=== PATIENT | female | born 1960 | race Caucasian/White ===

== ENCOUNTER 2017-02-07 09:51 | Inpatient (IN) ==
[2017-02-07] MEDS ORDERED: ACETAMINOPHEN 325 MG TABLET PO PRN (10:38)
[2017-02-07] MEDS: LEVOFLOXACIN INJ 750 MG in PREMIX 1 EACH IV SCH (11:48)
[2017-02-07] MEDS: SODIUM CHLORIDE 0.9% 1,000 ML IV SCH ×2 (11:48→19:00)
[2017-02-07] MEDS: HYDROmorphone 2 MG/1 ML VIAL IV PRN ×2 (12:14→18:23)
[2017-02-07] MEDS: ONDANSETRON 4 MG/2 ML VIAL IV PRN (12:18)
--- NOTE | 2017-02-07 12:45 | EKG Report ---
Stationary ECG Study [facility] Test Date: 02/07/2017 12:44:22 PM Pat Name: MIS RAMIREZ Department: Room: 223 Gender: F Echocardiograph Technician: DEJAH : 1960 Requested by: Geoff Alexis Order Number: [id number] Reading MD: NIRAJ PETERSON Intervals [place] Rate: 67 P: 37 NV: 153 QRS: -16 QRSD: 93 T: -32 QT: 407 QTc: 423 Interpretive Statements SINUS RHYTHM VOLTAGE CRITERIA FOR LVH Electronically Signed On 02-07-17 16:25:38 CDT by NIRAJ PETERSON [email or web address]
--- NOTE | 2017-02-07 12:47 | General Surgery Consult Note ---
Assessment and Plan (1) Abdominal pain Status: Acute Assessment and plan: Patient is experiencing abdominal pain which is now localized to the right lower quadrant. This is progressed over several days but appears rather severe at this time. Currently all labs and imaging are pending. Patient is currently in pain but feeling somewhat improved by her report. We will follow- up on results of current studies with additional recommendations. Dr. Singh to follow. Current Visit: Yes History of Present Illness Chief complaint: Abdominal Pian History of present illness: Ms. Palmer is a 56 year old female with past medical history of diverticulitis , hypertension, depression and anxiety who reports abdominal pain for approximately 1 week which is gotten significantly worse for the past 4 days. She states that she has had severe diffuse abdominal pain which is very sensitive to even light touch which has now localized more to the right lower quadrant. She has experienced nausea with dry heaving and has had virtually no oral intake over the past 4 days with taking in small amounts of liquid only. She reports subjective fever but did not take her temperature at home. She reports typically having chronic constipation although she has been experiencing diarrhea multiple times per day also for the past 4-5 days. She has sought no medical treatment previously. She was directly admitted by Dr. Garrido. CT scan of the abdomen and pelvis is currently pending as well as labs. Home Medications Medication Instructions Recorded Confirmed Type Baclofen 10 mg PO TID PRN 03/09/15 02/07/17 History DULoxetine [Cymbalta] 30 mg PO BID 03/09/15 02/07/17 History Folic Acid Tab 1 mg PO BID 03/09/15 02/07/17 History Gabapentin Cap/Tab [Neurontin 600 mg PO TID 03/09/15 02/07/17 History Cap/Tab] Metoprolol Succinate Xl [Toprol Xl] 25 mg PO DAILY 03/09/15 02/07/17 History Oxybutynin Xl [Ditropan Xl] 15 mg PO BID 03/09/15 02/07/17 History traMADol TAB [Ultram] 1 tablet PO BID 03/09/15 02/07/17 History Ondansetron HCl 4 mg PO Q6H PRN 03/10/15 02/07/17 History Aspirin [Ecotrin] 325 mg PO DAILY 02/07/17 02/07/17 History Calcium Carbonate/Vitamin D3 2 tablet PO BID 02/07/17 02/07/17 History [Caltrate 600 Plus D3 Tablet] Cholecalciferol (Vitamin D3) 2,000 units PO BID 02/07/17 02/07/17 History [Vitamin D3] Cyanocobalamin (Vitamin B-12) 5,000 mcg PO BID 02/07/17 02/07/17 History [Vitamin B-12] Donepezil [Aricept] 10 mg PO BEDTIME 02/07/17 02/07/17 History LORazepam TAB [Ativan Tab] 0.5 mg PO QID 02/07/17 02/07/17 History Thiamine HCl 500 mg PO BID 02/07/17 02/07/17 History Trazodone HCl 100 mg PO BEDTIME 02/07/17 02/07/17 History Allergies Allergy/AdvReac Type Severity Reaction Status Date / Time cephalexin [From Keflex] AdvReac Severe Unknown/Unable Verified 03/10/15 10:29 to obtain vilazodone [From Viibryd] AdvReac Severe Unknown/Unable Verified 03/10/15 10:29 to obtain Medical,Surgical,& Family Hx - Medical History Cardio: History of: Hypertension, Cardiovascular Problems (bradycardia) Psychological: History of: Anxiety Disorders, Depression Neurology: History of: TIA No history of: Seizures HEENT: History of: HEENT Problems (hard time swallowing) Endocrine: No history of: Thyroid Disorder Renal: History of: Renal Problems (neurogenic bladder, patient self caths at home) Genitourinary: History of: Recurring Urinary Tract Infections Gastrointestinal: History of: Diverticulitis/ Diverticulosis, GERD Musculoskeletal: History of: Back/Neck Problems (surgery on neck) Hematology: No history of: Anemia - Surgical History Additional Surgical History: ; hysterectomy; cervical; knee - Family History Family History: Reports;: Additional Family History Additional Family History: Sister with factor V Leiden deficiency - Social History Smoking Status: Never smoker Frequency of Alcohol Use: None Type of Drug Use: None - Constitutional Constitutional: Present: as per HPI - Cardiovascular Cardiovascular: Absent: chest pain at rest, chest pain with activity, dyspnea, dyspnea on exertion - Respiratory Respiratory: Absent: cough, wheezing - Gastrointestinal Gastrointestinal: Present: as per HPI - Genitourinary Genitourinary: Absent: dysuria, flank pain - Musculoskeletal Musculoskeletal: Absent: arthralgias, joint swelling Hematologic/Lymphatic: Absent: easy bleeding, easy bruising Exam - Constitutional Vitals: Period Temp Pulse Resp BP Sys/Pruitt Pulse Ox Last 24 Hr 98.5 F 76 20 121/72 92 General appearance: mild distress - Eye Eye exam: Absent: scleral icterus - Neck Neck exam: Present: trachea midline - Respiratory Respiratory exam: Present: clear to auscultation bilaterally - Cardiovascular Cardiovascular exam: Present: RRR - GI/Abdominal GI/Abdominal exam: Present: tenderness (Patient with tenderness localized right lower quadrant; she is guarding), soft. Absent: distended - Extremities Exam Extremities exam: Absent: calf tenderness, edema - Neurological Exam Neurological exam: Present: alert, oriented X3 Speech: Present: normal - Skin Skin exam: Present: normal color, warm Results - Labs Labs: All labs and imaging pending
[2017-02-07 13:33] LABS: Basophils % 0.3 % (0.0-0.8); Eosinophils # 0.1 10*3/uL (0.0-0.87); Eosinophils % 1.2 % (0.00-10.9); Hematocrit 37.9 VOL% (35.7-47.0); Hemoglobin 12.8 GM/DL (12.0-16.0); Immature Granulocytes % 0.7 %; Immature Granulocytes Absolute 0.08 #; Lymphocytes # 2.2 10*3/uL (1.4-4.0); Lymphocytes % 19.5 % (21.3-54.2); Mean Corpuscular HGB Conc 33.8 GM/DL (32-36); Mean Corpuscular Hemoglobin 31 PG (27-34); Mean Corpuscular Volume 92.4 FL (87-102); Mean Platelet Volume 10.6 FL (9.6-12.0); Monocytes # 0.9 10*3/uL (0.11-0.8); Monocytes % 7.9 % (1.7-12.7); Neutrophils # 8.1 10*3/uL (1.4-7.4); Neutrophils % 70.4 % (38.7-73.9); Platelet Count 208 T/CUMM (130-400); Red Cell Distribution Width 13.3 % (9.3-17.3); White Blood Count 11.4 T/CUMM (4-12)
[2017-02-07 13:54] LABS: Bilirubin,Total 0.4 MG/DL (0.2-1.0); Calcium 8.6 MG/DL (8.5-10.1); Osmolality,Calculated 279.4 MOS/KG (273-304); Potassium 4.2 MMOL/L (3.5-5.1); Total Protein 6.2 G/DL (6.4-8.3)
--- NOTE | 2017-02-07 14:22 | CT Report ---
Exam: CT abdomen pelvis w con Date: 02/07/2017 10:41 AM Comparison: 04/14/2012 Indication: Abdominal pain Total DLP: 1761.0 mGy*cm Technical: Oral contrast was administered. Images were obtained from the lung bases to the iliac crest continuation through the pelvis with 100 cc of Omnipaque 350 with axial sagittal coronal imaging available for review. Dose reduction was performed with decreasing kv and mA and automated exposure Findings: Lung bases: No obvious infiltrates or effusions present. Bibasilar atelectatic changes are present. Liver and Spleen: Unremarkable Gallbladder and Pancreas: Gallbladder is distended without obvious stones or sludge or debris. The pancreas is otherwise unremarkable. Adrenals: Unremarkable Kidneys: Both kidneys are equally perfused and demonstrate no evidence for obstructive uropathy. Stomach: Incomplete distended with air fluid and debris Retroperitoneum: No enlarged lymph nodes. Aorta and IVC: Vascular plaque in the aorta and iliac vessels minimal calcification along the renal artery areas Bowel and Mesentery: Some dilated loops of bowel are present. There is wall thickening within the cecal region and ascending colon. The appendix is not readily apparent the terminal ileum is unremarkable. Pelvis: Bladder: Incompletely distended with fluid and contrast Fluid: Small free fluid identified. This is located adjacent to the cecum Lymph nodes: No enlarged lymph nodes. Pelvic organs: Previous hysterectomy. Phleboliths in the true pelvis. Osseous structures: Degenerative changes of thoracic spine with degenerative spondylosis and discogenic disease Impression: 1. Thickening of the bowel wall in the cecal region and ascending colon that suggests a component of colitis. No defined abscess collection clearly seen 2. Small amount of free fluid in the deep pelvis cul-de-sac. 3. Slightly distended gallbladder without obvious stones 4. Minimal vascular calcification of the aortoiliac vessels 5. Injection granulomas in the gluteal region 6. Degenerative spondylosis change thoracic lumbar spine. PROCEDURE INTERPRETED AT [facility] DEPARTMENT OF RADIOLOGY Final Report Signed by: Dr. Rodger Julian
--- NOTE | 2017-02-07 15:23 | XRay Report ---
2 view chest February 07, 2017 at 1510 hours Indication: Shortness of breath Comparison: December 05, 2012 Findings: Cardiomediastinal contours are normal. Lungs are clear bilaterally. No acute osseous abnormalities. Visualized upper abdomen demonstrates no acute pathology. Impression: No acute cardiopulmonary findings PROCEDURE INTERPRETED AT [facility] DEPARTMENT OF RADIOLOGY Final Report Signed by: Telly Rooney
[2017-02-07] MEDS ORDERED: ONDANSETRON 4 MG TABLET PO PRN (17:16)
[2017-02-07 18:18] LABS: Apearance,Urine CLEAR (Clear); Bacteria,Urine Many /HPF (Few); Bilirubin,Urine Negative (Negative); Blood, Urine Negative (Negative); Glucose,Urine (UA) Negative (Negative); Ketones,Urine 5 mg/dL (Negative); Mucus,Urine Occasional /LPF (Occasional); Nitrite,Urine Negative (Negative); Protein,Urine Negative; Squamous Epithelial Cell,Urine Occasional /HPF (0-10); Urine Color Yellow (Yellow); Urine Specific Gravity 1.004 (1.001-1.035); Urine Urobilinogen < 2.0 EU/DL (0.2-1.0); WBC,Urine 1 /HPF (0-6)
[2017-02-07] MEDS: LORazepam 0.5 MG TABLET PO SCH ×2 (18:23→20:54)
[2017-02-07] MEDS: metroNIDAZOLE INJ 500 MG in PREMIX 1 EACH IV SCH (20:42)
[2017-02-07] MEDS: CYANOCOBALAMIN 500 MCG TABLET PO SCH (20:46)
[2017-02-07] MEDS: CHOLECALCIFEROL 1,000 UNIT TABLET PO SCH (20:52)
[2017-02-07] MEDS: THIAMINE 100 MG TABLET PO SCH (20:53)
[2017-02-07] MEDS: DONEPEZIL 10 MG TABLET PO SCH (20:53)
[2017-02-07] MEDS: CALCIUM (CARBONATE)/VITAMIN D 600 MG-400 UNIT TABLET PO SCH (20:53)
[2017-02-07] MEDS: DULoxetine 30 MG CAPSULE PO SCH (20:54)
[2017-02-07] MEDS: traZODone 50 MG TABLET PO SCH (20:54)
[2017-02-07] MEDS: FOLIC ACID 1 MG TABLET PO SCH (20:54)
[2017-02-07] MEDS: GABAPENTIN 300 MG CAPSULE PO SCH (20:55)
[2017-02-07] MEDS: OXYBUTYNIN XL 15 MG TABLET PO SCH (20:55)
[2017-02-07] MEDS: DOCUSATE SODIUM 100 MG CAPSULE PO SCH (20:56)
[2017-02-07] MEDS: traMADol 50 MG TABLET PO SCH (20:56)
[2017-02-08] MEDS: HYDROmorphone 2 MG/1 ML VIAL IV PRN ×2 (00:09→06:09)
[2017-02-08] MEDS: SODIUM CHLORIDE 0.9% 1,000 ML IV SCH ×4 (01:54→20:58)
[2017-02-08] MEDS: metroNIDAZOLE INJ 500 MG in PREMIX 1 EACH IV SCH ×3 (04:55→20:57)
[2017-02-08] MEDS: ONDANSETRON 4 MG/2 ML VIAL IV PRN ×3 (05:18→20:31)
--- NOTE | 2017-02-08 07:52 | Family Practice History&Phys ---
Assessment and Plan (1) Acute colitis Status: Acute Current Visit: Yes History of Present Illness Chief complaint: Abdominal pain History of present illness: Ms. Palmer is a 56 year old female Patient is a 56-year-old white female presented the office on day of admission with severe abdominal pain of 4 days duration. Patient was noted to have nausea and vomiting associated with this as well as diarrhea. She denies any blood or mucus in her stool. She states she has never had anything quite like this before. She has had previous colonoscopy that showed diverticular disease. Patient pointed to her right abdomen is a source of her discomfort. Patient was admitted my services in the emergency CT of the abdomen was obtained which revealed her to have evidence of colitis in the cecum and ascending colon. She was seen in consultation by Dr. carter and GI has also been consulted. Patient states her pain persists. She is presently on IV antibiotic therapy. Home Medications Medication Instructions Recorded Confirmed Type Baclofen 10 mg PO TID PRN 03/09/15 02/07/17 History DULoxetine [Cymbalta] 30 mg PO BID 03/09/15 02/07/17 History Folic Acid Tab 1 mg PO BID 03/09/15 02/07/17 History Gabapentin Cap/Tab [Neurontin 600 mg PO TID 03/09/15 02/07/17 History Cap/Tab] Metoprolol Succinate Xl [Toprol Xl] 25 mg PO DAILY 03/09/15 02/07/17 History Oxybutynin Xl [Ditropan Xl] 15 mg PO BID 03/09/15 02/07/17 History traMADol TAB [Ultram] 1 tablet PO BID 03/09/15 02/07/17 History Ondansetron HCl 4 mg PO Q6H PRN 03/10/15 02/07/17 History Aspirin [Ecotrin] 325 mg PO DAILY 02/07/17 02/07/17 History Calcium Carbonate/Vitamin D3 2 tablet PO BID 02/07/17 02/07/17 History [Caltrate 600 Plus D3 Tablet] Cholecalciferol (Vitamin D3) 2,000 units PO BID 02/07/17 02/07/17 History [Vitamin D3] Cyanocobalamin (Vitamin B-12) 5,000 mcg PO BID 02/07/17 02/07/17 History [Vitamin B-12] Donepezil [Aricept] 10 mg PO BEDTIME 02/07/17 02/07/17 History LORazepam TAB [Ativan Tab] 0.5 mg PO QID 02/07/17 02/07/17 History Thiamine HCl 500 mg PO BID 02/07/17 02/07/17 History Trazodone HCl 100 mg PO BEDTIME 02/07/17 02/07/17 History Allergies Allergy/AdvReac Type Severity Reaction Status Date / Time cephalexin [From Keflex] AdvReac Severe Unknown/Unable Verified 03/10/15 10:29 to obtain vilazodone [From Viibryd] AdvReac Severe Unknown/Unable Verified 03/10/15 10:29 to obtain - Constitutional Constitutional: Present: fatigue, weakness. Absent: chills, fever(s) - EENT Eyes: Absent: blurry vision, loss of vision Ears: Absent: decreased hearing, ear pain Nose, mouth and throat: Absent: hoarseness, nasal congestion, sinus pressure, sore throat - Cardiovascular Cardiovascular: Absent: chest pain at rest, dyspnea, orthopnea, palpitations, PND - Respiratory Respiratory: Absent: cough, dyspnea, wheezing - Gastrointestinal Gastrointestinal: Present: abdominal pain, bloating, cramping, diarrhea, nausea , vomiting - Genitourinary Genitourinary: Absent: difficulty urinating, flank pain, hematuria, urinary frequency, urinary hesitancy - Musculoskeletal Musculoskeletal: Absent: arthralgias, back pain - Neurological Neurological: Absent: confusion, focal weakness, numbness, paresthesias - Psychiatric Psychiatric: Absent: anxiety, confusion - Endocrine Endocrine: Absent: fatigue, polydipsia, polyphagia - Hematologic/Lymphatic Hematologic/Lymphatic: Absent: easy bleeding, easy bruising Medical,Surgical,& Family Hx - Medical History Cardio: History of: Hypertension, Cardiovascular Problems (bradycardia) Psychological: History of: Anxiety Disorders, Depression Neurology: History of: TIA No history of: Seizures HEENT: History of: HEENT Problems (hard time swallowing) Endocrine: No history of: Thyroid Disorder Renal: History of: Renal Problems (neurogenic bladder, patient self caths at home) Genitourinary: History of: Recurring Urinary Tract Infections Gastrointestinal: History of: Diverticulitis/ Diverticulosis, GERD Musculoskeletal: History of: Back/Neck Problems (surgery on neck) Hematology: No history of: Anemia - Surgical History Surgical History: noncontributory - Family History Family History: Reports;: Additional Family History - Social History Smoking Status: Never smoker Frequency of Alcohol Use: None Type of Drug Use: None Exam - Constitutional Vitals: Period Temp Pulse Resp BP Sys/Pruitt Pulse Ox Last 24 Hr 98.1 F-99.0 F 75-76 18-22 100-124/56-72 90-99 Exam: General: Objective patient is a well-developed white female appears quite uncomfortable. She is able to give an excellent history. HEENT: Pupils equal and reactive to light. Patent nares and airway Neck: No meningismus, adenopathy, thyromegaly. There are no auscultated carotid bruits. Cardiovascular: Regular rhythm. No murmurs or gallops Chest: Clear to auscultation without rales rhonchi wheezes. Abdomen: Abdomen is diffusely tender throughout. Patient's noted to have some rebound tenderness in the right midabdomen. Bowel sounds were appreciated. There is no palpable hepatosplenomegaly or masses. Neuro: Cranial nerves intact and DTRs and strength symmetric in all extremities. Dermatologic: No evidence of abnormal lesions or masses. Musculoskeletal: There is no joint swelling or tenderness or deformity. Extremities: There is no calf swelling or tenderness. Results - Labs CBC & BMP: 02/07/17 13:08 02/07/17 13:08 Lab Results: I have reviewed the past 24 hour labs - Diagnostic Findings Procedure: CT Abdomen and Pelvis: report reviewed by me (Evidence of acute colitis as mentioned above.)
[2017-02-08] MEDS: KETOROLAC 30 MG/1 ML VIAL IV SCH ×3 (08:33→20:27)
--- NOTE | 2017-02-08 09:02 | General Surgery Progress Note ---
Assessment and Plan (1) Abdominal pain Status: Acute Assessment and plan: The patient's abdominal pain is slightly better. She is having nausea and some headaches. I will defer management of her headaches to her medical team. Her abdominal pain is improved I have placed a consult for gastroenterology. Continue antibiotics for now. I think an ischemic component is unlikely given her clean visceral vessels on CT scan yesterday. Most likely this is infectious or inflammatory and also a small chance of malignancy. I will continue to follow the patient. Current Visit: Yes Subjective Patient reports: Present: no new complaints, still having pain, pain is less, nausea, afebrile. Absent: vomiting Narrative: The patient is having a migraine headache this morning she says. She reports nausea but no vomiting. Her abdomen is feeling slightly better. Exam - Constitutional Vitals: Period Temp Pulse Resp BP Sys/Pruitt Pulse Ox Last 24 Hr 98.1 F-99.0 F 75-76 18-22 100-124/56-72 90-99 General appearance: no acute distress, over weight - Head Head exam: Present: normal inspection, normocephalic - Eye Eye exam: Present: EOMI Pupils: Present: RAJESH - ENT ENT exam: Present: normal exam Mouth exam: Present: normal external inspection, normal voice - Neck Neck exam: Present: normal inspection, trachea midline - Respiratory Respiratory exam: Present: clear to auscultation bilaterally. Absent: accessory muscle use, chest wall tenderness - Cardiovascular Cardiovascular exam: Present: RRR. Absent: systolic murmur, tachycardia - GI/Abdominal GI/Abdominal exam: Present: tenderness (Slightly decreased abdominal tenderness) , soft. Absent: rebound - Extremities Exam Extremities exam: Present: normal inspection, normal capillary refill - Back Exam Back exam: Present: normal inspection - Neurological Exam Neurological exam: Present: alert, oriented X3 Speech: Present: normal - Skin Skin exam: Present: normal color, warm Results - Labs CBC & BMP: 02/07/17 13:08 02/07/17 13:08
[2017-02-08] MEDS: BACLOFEN 10 MG TABLET PO PRN (11:02)
[2017-02-08] MEDS: GABAPENTIN 300 MG CAPSULE PO SCH ×3 (11:02→20:26)
[2017-02-08] MEDS: LORazepam 0.5 MG TABLET PO SCH ×4 (11:03→20:25)
[2017-02-08] MEDS: DULoxetine 30 MG CAPSULE PO SCH ×2 (11:03→20:27)
[2017-02-08] MEDS: traMADol 50 MG TABLET PO SCH ×2 (11:03→20:27)
[2017-02-08] MEDS: OXYBUTYNIN XL 15 MG TABLET PO SCH ×2 (11:04→20:25)
[2017-02-08] MEDS: METOPROLOL SUCCINATE XL 25 MG TABLET PO SCH (11:05)
[2017-02-08] MEDS: LEVOFLOXACIN INJ 750 MG in PREMIX 1 EACH IV SCH (11:09)
[2017-02-08] MEDS: PANTOPRAZOLE 40 MG VIAL IV SCH (11:18)
--- NOTE | 2017-02-08 11:44 | Gastrointestinal Consult Note ---
Assessment and Plan (1) Abdominal pain Status: Acute Assessment and plan: 02/07-5 day history of abdominal pain, diffuse, with associated nausea and dry heaving with long-term history of constipation. CT scan findings noted as below. Reports last endoscopy 5 years ago with diverticular disease. Flagyl and Levaquin IV has been initiated. Continue to monitor present time. Plan an addendum to followed by Dr. Ramirez. Current Visit: Yes History of Present Illness Chief complaint: Abdominal pain History of present illness: Ms. Palmer is a 56 year old female who was admitted to the hospital with 5 day history of severe abdominal pain. Patient states that she was her usual state of health until last Monday when she had an onset of diffuse abdominal pain. She states the pain initially was mild to moderate in nature and did not seem to be precipitated by any known factors. She also had some mild nausea onset with this as well as an episode of diarrhea. Patient states as the weekend progressed the pain became more severe and more difficult to alleviate. She also had increasing nausea with dry heaving at that time. She states that she has not had anything to eat since onset of pain last Monday due to the nausea. Patient states that she saw Dr. Garrido in clinic on yesterday and at that time she had a CT of the abdomen with contrast which showed thickening of the bowel wall in the cecal area as well as the ascending colon suggestive of colitis with no defined abscess seen. On admission, she was without leukocytosis and afebrile. She is complaining primarily of diffuse abdominal pain and tenderness however states that she has not had a bowel movement since initiation of the pain on Monday other than a very small loose stool this morning. Patient also states that she has had a colonoscopy in the last 4-5 years with findings of diverticular disease. Unable to locate these records in our facility database at this time. Patient states that she has had IBS symptoms for several years with severe constipation at times requiring her to "did get an impaction of herself" and requiring daily laxative use. She denies any melena or hematochezia. She denies any coffee-ground emesis or hematemesis. She denies any weight loss. Denies a family history of colon cancer. Dr. Singh has consulted with patient at this time and does not feel this is surgical however we will continue to monitor with IV antibiotic therapy. Home Medications Medication Instructions Recorded Confirmed Type Baclofen 10 mg PO TID PRN 03/09/15 02/07/17 History DULoxetine [Cymbalta] 30 mg PO BID 03/09/15 02/07/17 History Folic Acid Tab 1 mg PO BID 03/09/15 02/07/17 History Gabapentin Cap/Tab [Neurontin 600 mg PO TID 03/09/15 02/07/17 History Cap/Tab] Metoprolol Succinate Xl [Toprol Xl] 25 mg PO DAILY 03/09/15 02/07/17 History Oxybutynin Xl [Ditropan Xl] 15 mg PO BID 03/09/15 02/07/17 History traMADol TAB [Ultram] 1 tablet PO BID 03/09/15 02/07/17 History Ondansetron HCl 4 mg PO Q6H PRN 03/10/15 02/07/17 History Aspirin [Ecotrin] 325 mg PO DAILY 02/07/17 02/07/17 History Calcium Carbonate/Vitamin D3 2 tablet PO BID 02/07/17 02/07/17 History [Caltrate 600 Plus D3 Tablet] Cholecalciferol (Vitamin D3) 2,000 units PO BID 02/07/17 02/07/17 History [Vitamin D3] Cyanocobalamin (Vitamin B-12) 5,000 mcg PO BID 02/07/17 02/07/17 History [Vitamin B-12] Donepezil [Aricept] 10 mg PO BEDTIME 02/07/17 02/07/17 History LORazepam TAB [Ativan Tab] 0.5 mg PO QID 02/07/17 02/07/17 History Thiamine HCl 500 mg PO BID 02/07/17 02/07/17 History Trazodone HCl 100 mg PO BEDTIME 02/07/17 02/07/17 History Allergies Allergy/AdvReac Type Severity Reaction Status Date / Time cephalexin [From Keflex] AdvReac Severe Unknown/Unable Verified 03/10/15 10:29 to obtain vilazodone [From Viibryd] AdvReac Severe Unknown/Unable Verified 03/10/15 10:29 to obtain Medical,Surgical,& Family Hx - Medical History Cardio: History of: Hypertension, Cardiovascular Problems (bradycardia) Psychological: History of: Anxiety Disorders, Depression Neurology: History of: TIA No history of: Seizures HEENT: History of: HEENT Problems (hard time swallowing) Endocrine: No history of: Thyroid Disorder Renal: History of: Renal Problems (neurogenic bladder, patient self caths at home) Genitourinary: History of: Recurring Urinary Tract Infections Gastrointestinal: History of: Diverticulitis/ Diverticulosis, GERD Musculoskeletal: History of: Back/Neck Problems (surgery on neck) Hematology: No history of: Anemia - Family History Family History: Reports;: Additional Family History - Social History Smoking Status: Never smoker Frequency of Alcohol Use: None Type of Drug Use: None 12 point system: reviewed and no additional remarkable complaints except as stated - Constitutional Constitutional: Present: as per HPI - EENT Eyes: Present: as per HPI Ears: Present: as per HPI Nose, mouth and throat: Present: as per HPI - Cardiovascular Cardiovascular: Present: as per HPI - Respiratory Respiratory: Present: as per HPI - Gastrointestinal Gastrointestinal: Present: as per HPI, abdominal pain, nausea - Genitourinary Genitourinary: Present: as per HPI - Musculoskeletal Musculoskeletal: Present: as per HPI - Neurological Neurological: Present: as per HPI - Psychiatric Psychiatric: Present: as per HPI - Endocrine Endocrine: Present: as per HPI - Hematologic/Lymphatic Hematologic/Lymphatic: Present: as per HPI Exam - Constitutional Vitals: Period Temp Pulse Resp BP Sys/Pruitt Pulse Ox Last 24 Hr 98.1 F-99.0 F 75-76 18-22 100-124/55-72 90-99 General appearance: normal weight, no acute distress - Head Head exam: Present: normal inspection, normocephalic - Eye Eye exam: Present: other (Lids and conjunctive are unremarkable). Absent: scleral icterus - ENT ENT exam: Present: normal exam, normal oropharynx - Neck Neck exam: Present: normal inspection - Respiratory Respiratory exam: Present: clear to auscultation bilaterally. Absent: rales, rhonchi, wheezes - Cardiovascular Cardiovascular exam: Present: regular rate and rhythm. Absent: diastolic murmur , JVD, systolic murmur - GI/Abdominal GI/Abdominal exam: Present: normal bowel sounds, soft. Absent: ascites, distended, mass, organomegaly, tenderness - Extremities Exam Extremities exam: Present: normal inspection, full ROM - Back Exam Back exam: Present: normal inspection - Neurological Exam Neurological exam: Present: alert, oriented X3 - Psychiatric Psychiatric exam: Present: normal affect, normal mood - Skin Skin exam: Present: normal color, warm, dry Results - Labs CBC & BMP: 02/07/17 13:08 02/07/17 13:08 Lab Results: I have reviewed the past 24 hour labs - Diagnostic Findings Procedure: CT Abdomen and Pelvis: report reviewed by me
[2017-02-08] MEDS: CHOLECALCIFEROL 1,000 UNIT TABLET PO SCH ×2 (13:09→21:12)
[2017-02-08] MEDS: CYANOCOBALAMIN 500 MCG TABLET PO SCH ×2 (13:12→21:12)
[2017-02-08] MEDS: THIAMINE 100 MG TABLET PO SCH ×2 (13:13→21:12)
[2017-02-08] MEDS: FOLIC ACID 1 MG TABLET PO SCH ×2 (13:13→21:12)
[2017-02-08] MEDS: DOCUSATE SODIUM 100 MG CAPSULE PO SCH ×2 (13:14→21:13)
[2017-02-08] MEDS: CALCIUM (CARBONATE)/VITAMIN D 600 MG-400 UNIT TABLET PO SCH ×2 (13:15→21:13)
[2017-02-08] MEDS: ASPIRIN EC 325 MG TABLET PO SCH (13:42)
[2017-02-08] MEDS: DONEPEZIL 10 MG TABLET PO SCH (20:27)
[2017-02-08] MEDS: traZODone 50 MG TABLET PO SCH (20:27)
[2017-02-09] MEDS: KETOROLAC 30 MG/1 ML VIAL IV SCH ×4 (02:57→20:51)
[2017-02-09] MEDS: ONDANSETRON 4 MG/2 ML VIAL IV PRN ×2 (02:57→10:25)
[2017-02-09] MEDS: metroNIDAZOLE INJ 500 MG in PREMIX 1 EACH IV SCH ×3 (05:08→20:53)
--- NOTE | 2017-02-09 07:42 | Family Practice Progress Note ---
Family Practice - PN: Subj Interval history: Patient states she is definitely feeling some better this morning would like to advance her diet. She is not having any fever or chills. She states she has not had any nausea vomiting or diarrhea has subsided. Exam (Progress Note) - Constitutional Vitals: Period Temp Pulse Resp BP Sys/Pruitt Pulse Ox Last 24 Hr 96.3 F-98.3 F 60-69 18-20 87-125/52-59 92-97 Exam: objective well-developed white female who is awake alert and able give good history. She certainly appears to be feeling much better than she was on admission. Cardiovascular: Heart rates regular without murmurs. Respiratory: Lungs clear to auscultation bilaterally. Abdomen: Patient still has some direct right lower quadrant tenderness but is much reduced from admission and she has no rebound or guarding. Results - Labs CBC & BMP: 02/07/17 13:08 02/07/17 13:08 Lab Results: I have reviewed the past 24 hour labs Assessment and Plan (1) Acute colitis Status: Acute Assessment and plan: 02/09/2017: Patient is clinically improving and will advance diet as tolerated. Current Visit: Yes
--- NOTE | 2017-02-09 08:13 | General Surgery Progress Note ---
Assessment and Plan (1) Abdominal pain Status: Acute Assessment and plan: Patient is responding to antibiotics. No surgical intervention is required right now but will be important to follow her and get a follow-up colonoscopy after inflammation has resolved. I will sign off at this time. Please call back if any further questions arise. Current Visit: Yes (2) Epidermal inclusion cyst Status: Acute Assessment and plan: This can be managed as an outpatient. I believe he can be removed in clinic. I will set up a follow-up for the patient to have this addressed. Current Visit: Yes Subjective Patient reports: Present: no new complaints, feels better, still having pain, pain is less, tolerating liquids well, nausea, afebrile. Absent: vomiting Narrative: The patient is asked me to look at a cystic lesion on her left posterior neck today that is been present for quite some time. Exam - Constitutional Vitals: Period Temp Pulse Resp BP Sys/Pruitt Pulse Ox Last 24 Hr 96.3 F-98.3 F 58-69 18-20 87-125/52-59 93-97 General appearance: no acute distress, over weight - Head Head exam: Present: normal inspection, normocephalic - Eye Eye exam: Present: EOMI. Absent: scleral icterus Pupils: Present: RAJESH - ENT ENT exam: Present: normal exam Mouth exam: Present: normal external inspection, normal voice - Neck Neck exam: Present: normal inspection, trachea midline - Respiratory Respiratory exam: Present: clear to auscultation bilaterally. Absent: accessory muscle use, chest wall tenderness - Cardiovascular Cardiovascular exam: Present: RRR. Absent: systolic murmur, tachycardia - GI/Abdominal GI/Abdominal exam: Present: hypoactive bowel sounds, tenderness (Significantly decreased tenderness right lower quadrant), soft. Absent: distended, guarding, rebound - Extremities Exam Extremities exam: Present: normal inspection, normal capillary refill - Back Exam Back exam: Present: normal inspection - Neurological Exam Neurological exam: Present: alert, oriented X3 Speech: Present: normal - Skin Skin exam: Present: normal color, warm, other (There is an epidermal inclusion cyst over the left shoulder that is small and not infected measured about 1 cm in size) Results - Labs CBC & BMP: 02/07/17 13:08 02/07/17 13:08 Specialty Discharge - Follow Up or Referrals Follow up with: Lee Singh MD [Physician] - 2 Weeks (left posterior neck epidermal inclusion cyst)
[2017-02-09] MEDS: LEVOFLOXACIN INJ 750 MG in PREMIX 1 EACH IV SCH (10:16)
[2017-02-09] MEDS: PANTOPRAZOLE 40 MG VIAL IV SCH (10:20)
[2017-02-09] MEDS: GABAPENTIN 300 MG CAPSULE PO SCH ×3 (10:38→20:52)
[2017-02-09] MEDS: LORazepam 0.5 MG TABLET PO SCH ×4 (10:38→20:53)
[2017-02-09] MEDS: BACLOFEN 10 MG TABLET PO PRN ×2 (10:39→14:42)
[2017-02-09] MEDS: METOPROLOL SUCCINATE XL 25 MG TABLET PO SCH (10:39)
[2017-02-09] MEDS: traMADol 50 MG TABLET PO SCH ×2 (10:39→20:52)
[2017-02-09] MEDS: OXYBUTYNIN XL 15 MG TABLET PO SCH ×2 (10:39→20:52)
[2017-02-09] MEDS: DULoxetine 30 MG CAPSULE PO SCH ×2 (10:40→20:53)
[2017-02-09] MEDS: ASPIRIN EC 325 MG TABLET PO SCH (10:40)
[2017-02-09] MEDS: DOCUSATE SODIUM 100 MG CAPSULE PO SCH ×2 (10:55→20:51)
[2017-02-09] MEDS: CALCIUM (CARBONATE)/VITAMIN D 600 MG-400 UNIT TABLET PO SCH ×2 (10:55→22:04)
[2017-02-09] MEDS: THIAMINE 100 MG TABLET PO SCH ×2 (10:56→22:03)
[2017-02-09] MEDS: CHOLECALCIFEROL 1,000 UNIT TABLET PO SCH ×2 (10:56→22:02)
[2017-02-09] MEDS: FOLIC ACID 1 MG TABLET PO SCH ×2 (10:56→22:04)
[2017-02-09] MEDS: CYANOCOBALAMIN 500 MCG TABLET PO SCH ×2 (10:56→22:03)
--- NOTE | 2017-02-09 11:20 | Gastrointestinal Progress Note ---
Assessment and Plan (1) Abdominal pain Status: Acute Assessment and plan: 02/09-abdominal pain improved, no nausea or vomiting. Afebrile. Tolerating diet. Stool for occult blood pending. Continue to monitor present time. Plan an addendum to followed by Dr. Ramirez. 02/08-5 day history of abdominal pain, diffuse, with associated nausea and dry heaving with long-term history of constipation. CT scan findings noted as below. Reports last endoscopy 5 years ago with diverticular disease. Flagyl and Levaquin IV has been initiated. Continue to monitor present time. Plan an addendum to followed by Dr. Ramirez. Current Visit: Yes Gastroenterology - PN: Subj Interval history: CC: Abdominal pain Patient is seen, awake and alert, sitting up in bed. States she rested well overnight. States her abdominal pain is significantly better today. She denies any nausea or vomiting associated with this. She has not had a bowel movement since admission. She is afebrile. Stool studies are negative however she is noted to have gram-positive rods in her urine and currently being treated for this. Stool for occult blood is currently pending. She is tolerating small amounts of her diet without difficulty. Abdomen is soft, no tenderness to palpation today. ROS: Denies shortness breath or chest pain Exam (Progress Note) - Constitutional Vitals: Period Temp Pulse Resp BP Sys/Pruitt Pulse Ox Last 24 Hr 96.3 F-98.3 F 58-69 18-20 87-125/52-59 93-97 - Other Additional findings: General appearance: normal weight, no acute distress - Head Head exam: Present: normal inspection, normocephalic - Eye Eye exam: Present: other (Lids and conjunctive are unremarkable). Absent: scleral icterus - ENT ENT exam: Present: normal exam, normal oropharynx - Neck Neck exam: Present: normal inspection - Respiratory Respiratory exam: Present: clear to auscultation bilaterally. Absent: rales, rhonchi, wheezes - Cardiovascular Cardiovascular exam: Present: regular rate and rhythm. Absent: diastolic murmur , JVD, systolic murmur - GI/Abdominal GI/Abdominal exam: Present: normal bowel sounds, soft. Absent: ascites, distended, mass, organomegaly, tenderness - Extremities Exam Extremities exam: Present: normal inspection, full ROM - Back Exam Back exam: Present: normal inspection - Neurological Exam Neurological exam: Present: alert, oriented X3 - Psychiatric Psychiatric exam: Present: normal affect, normal mood - Skin Skin exam: Present: normal color, warm, dry Results - Labs CBC & BMP: 02/07/17 13:08 02/07/17 13:08 Lab Results: I have reviewed the past 24 hour labs Specialty Discharge - Follow Up or Referrals Follow up with: Lee Singh MD [Physician] - 2 Weeks (left posterior neck epidermal inclusion cyst)
[2017-02-09] MEDS: POLYETHYLENE GLYCOL POWDER 17 GM PACK PO SCH (14:54)
[2017-02-09] MEDS: traZODone 50 MG TABLET PO SCH (20:52)
[2017-02-09] MEDS: DONEPEZIL 10 MG TABLET PO SCH (20:52)
[2017-02-09] MEDS: SODIUM CHLORIDE 0.9% 1,000 ML IV SCH ×2 (22:38→22:44)
[2017-02-10] MEDS: KETOROLAC 30 MG/1 ML VIAL IV SCH ×2 (03:28→08:27)
[2017-02-10] MEDS: metroNIDAZOLE INJ 500 MG in PREMIX 1 EACH IV SCH (05:10)
--- NOTE | 2017-02-10 07:58 | Discharge Summary ---
Hospital Course - Hospital Course Hospital Course: Patient is a 56-year-old white female presented to the office on day of admission with severe abdominal pain. Patient was admitted services and CT of the abdomen revealed patient to have inflammatory changes in the cecum and ascending colon. Patient was seen in consultation by Dr. Singh and Dr. Francisco Ramirez. Patient did not require any surgical intervention. Patient improved dramatically with IV antibiotic therapy and states she is feeling much better and ready to go home today. I told her she needs to have follow-up and colonoscopy at some point. I told her I would make her follow-up appointment with Dr. Ramirez for this purpose. Diagnosis - Discharge Diagnosis (1) Acute colitis Status: Acute Specialty Discharge - Follow Up or Referrals Follow up with: Lee Singh MD [Physician] - 2 Weeks (left posterior neck epidermal inclusion cyst) Discharge Plan - Discharge Data Disposition: Disch To Home/Self Care Condition at Discharge: Stable Discharge Diet: advance to your usual diet Activity: resume usual activities as tolerated Hygiene: no restrictions Weight Bearing at Discharge: full weight bearing Driving: no restrictions Contact your physician if you experience:: fever over 101 - Discharge Medications New Levofloxacin Tab [Levaquin Tab] 500 mg PO DAILY #7 tablet metroNIDAZOLE TAB [Flagyl Cap/Tab] 500 mg PO BID #14 tablet Ondansetron Tab [Zofran Tab] 4 mg PO Q6H PRN #20 tablet PRN Reason: Nausea Omeprazole [Prilosec] 20 mg PO DAILY #30 capsule Continue Gabapentin Cap/Tab [Neurontin Cap/Tab] 600 mg PO TID traMADol TAB [Ultram] 1 tablet PO BID Folic Acid Tab 1 mg PO BID Oxybutynin Xl [Ditropan Xl] 15 mg PO BID Metoprolol Succinate Xl [Toprol Xl] 25 mg PO DAILY Baclofen 10 mg PO TID PRN PRN Reason: Muscle Spasm Calcium Carbonate/Vitamin D3 [Caltrate 600 Plus D3 Tablet] 2 tablet PO BID Aspirin [Ecotrin] 325 mg PO DAILY Cholecalciferol (Vitamin D3) [Vitamin D3] 2,000 units PO BID Donepezil [Aricept] 10 mg PO BEDTIME LORazepam TAB [Ativan Tab] 0.5 mg PO QID Thiamine HCl 500 mg PO BID Cyanocobalamin (Vitamin B-12) [Vitamin B-12] 5,000 mcg PO BID Trazodone HCl 100 mg PO BEDTIME Discontinued Ondansetron HCl 4 mg PO Q6H PRN PRN Reason: Nausea No Action DULoxetine [Cymbalta] 30 mg PO BID - Follow Up or Referral Follow Up: Lee Singh MD [Physician] - 2 Weeks (left posterior neck epidermal inclusion cyst) Rodger Ramirez MD [Physician] - 2 Weeks Celso Garrido MD [Primary Care Provider] - 1 Month - Forms/Instructions Exam - Constitutional Vitals: Period Temp Pulse Resp BP Sys/Pruitt Pulse Ox Last 24 Hr 97.2 F-97.4 F 52-66 16-22 105-147/56-67 67-97 Exam: objective well-developed white female who is awake alert and able give good history. She certainly appears to be feeling much better and she is anxious for discharge Cardiovascular: Heart rates regular without murmurs. Respiratory: Lungs clear to auscultation bilaterally. Abdomen: Patient has resolution of right-sided abdominal pain. There is no rebound or guarding noted. Discharge Results Procedures and tests throughout hospitalization: Pending Orders 02/07/17 13:08 Blood Culture Stat 02/07/17 20:06 Urine Culture Stat 02/09/17 11:20 Occult Blood, Stool Routine Labs on day of discharge: Preliminary micro results at discharge 02/07/17 13:08 Blood Culture - Preliminary Blood No growth at 1 day 02/07/17 13:08 Blood Culture - Preliminary Blood No growth at 1 day 02/07/17 20:06 Urine Culture - Preliminary Urine,Clean Catch Gram Negative Rods DS: Provider Date of admission: 02/07/17 10:38 Primary care physician: Celso Garrido MD Attending physician on admission: Celso Garrido MD Consults: 02/07/17 10:38 Consult to Case Mgmt/Social Srvs [CONS] Routine Reason for Case Mgmt/Social Srvs: Discharge Planning 02/07/17 10:41 Consult to Physician [CONS] Routine Comment: Consulting Provider: Lee Singh Person Notified: [email or web address] Date Notified: 02/07/17 Time Notified: 11:50 02/07/17 11:27 Consult to Pastoral Services [CONS] Routine Comment: Pastoral Screen: Request [facility] Trimmer Visit 02/08/17 06:46 Consult to Physician [CONS] Routine Comment: colitis, established patient Consulting Provider: Rodger Ramirez Person Notified: lan Date Notified: 02/08/17 Time Notified: 15:16 Discharging clinician: Celso Garrido MD Expected date of discharge: 02/10/17
[2017-02-10 08:06] VITALS: BP 125/64
[2017-02-10] MEDS: POLYETHYLENE GLYCOL POWDER 17 GM PACK PO SCH (08:22)
[2017-02-10] MEDS: OXYBUTYNIN XL 15 MG TABLET PO SCH (08:23)
[2017-02-10] MEDS: LORazepam 0.5 MG TABLET PO SCH (08:23)
[2017-02-10] MEDS: traMADol 50 MG TABLET PO SCH (08:24)
[2017-02-10] MEDS: DULoxetine 30 MG CAPSULE PO SCH (08:24)
[2017-02-10] MEDS: FOLIC ACID 1 MG TABLET PO SCH (08:24)
[2017-02-10] MEDS: ASPIRIN EC 325 MG TABLET PO SCH (08:24)
[2017-02-10] MEDS: CALCIUM (CARBONATE)/VITAMIN D 600 MG-400 UNIT TABLET PO SCH (08:24)
[2017-02-10] MEDS: GABAPENTIN 300 MG CAPSULE PO SCH (08:24)
[2017-02-10] MEDS: DOCUSATE SODIUM 100 MG CAPSULE PO SCH (08:24)
[2017-02-10] MEDS: METOPROLOL SUCCINATE XL 25 MG TABLET PO SCH (08:24)
[2017-02-10] MEDS: CHOLECALCIFEROL 1,000 UNIT TABLET PO SCH (08:25)
[2017-02-10] MEDS: CYANOCOBALAMIN 500 MCG TABLET PO SCH (08:25)
[2017-02-10] MEDS: THIAMINE 100 MG TABLET PO SCH (08:25)
[2017-02-10] MEDS: PANTOPRAZOLE 40 MG VIAL IV SCH (08:32)
[2017-02-10] MEDS: LEVOFLOXACIN INJ 750 MG in PREMIX 1 EACH IV SCH (08:36)
== END 2017-02-10 10:36 | disposition home or self-care (01) | DRG 392 ==
LOC: N.3E 10:36 → N.2E 11:12
PROVIDERS: ADMIT Family Medicine; ATTEND Family Medicine

== ENCOUNTER 2020-01-05 11:24 | Inpatient (IN) ==
[2020-01-05] MEDS ORDERED: ONDANSETRON 4 MG/2 ML VIAL IV STA (11:42)
[2020-01-05] MEDS ORDERED: metroNIDAZOLE INJ 500 MG in PREMIX 1 EACH IV STA (11:42)
[2020-01-05] MEDS ORDERED: LEVOFLOXACIN INJ 750 MG in PREMIX 1 EACH IV STA (11:42)
[2020-01-05] MEDS ORDERED: SODIUM CHLORIDE 0.9% 1,000 ML IV STA ×2 (11:42→14:10)
[2020-01-05] MEDS ORDERED: LEVOFLOXACIN INJ 150 ML IV ONE (11:45)
[2020-01-05] MEDS ORDERED: HYDROmorphone 2 MG/1 ML VIAL ONE (11:47)
[2020-01-05 11:52] LABS: Basophils % 0.2 % (0.0-0.8); Hematocrit 36.1 VOL% (35.7-47.0); Hemoglobin 12.1 GM/DL (12.0-16.0); Immature Granulocytes % 0.5 %; Immature Granulocytes Absolute 0.07 #; Lymphocytes % 6.7 % (21.3-54.2); Mean Corpuscular HGB Conc 33.5 GM/DL (32-36); Mean Corpuscular Volume 88.7 FL (87-102); Mean Platelet Volume 9.9 FL (9.6-12.0); Monocytes % 7.3 % (1.7-12.7); Neutrophils % 85.3 % (38.7-73.9); Platelet Count 162 T/CUMM (130-400); Red Blood Count 4.07 MC/CUMM (3.8-5.5); Red Cell Distribution Width 13.3 % (9.3-17.3); White Blood Count 15.1 T/CUMM (4-12)
[2020-01-05] MEDS: HYDROmorphone 2 MG/1 ML VIAL IV PRN ×3 (12:12→20:33)
[2020-01-05 12:17] LABS: Albumin 3.3 G/DL (3.4-5.0); Bilirubin,Total 1.4 MG/DL (0.2-1.0); Calcium 8.6 MG/DL (8.5-10.1); Osmolality,Calculated 278.7 MOS/KG (273-304); Total Protein 6.9 G/DL (6.4-8.3)
[2020-01-05 12:22] LABS: Bacteria,Urine Occasional /HPF (Few); Bilirubin,Urine Negative (Negative); Blood, Urine Negative (Negative); Glucose,Urine (UA) Negative (Negative); Ketones,Urine 20 mg/dL (Negative); Mucus,Urine Few /LPF (Occasional); Nitrite,Urine Negative (Negative); Protein,Urine Negative; RBC,Urine 2 /HPF (0-4); Urine Appearance CLEAR (Clear); Urine Color Yellow (Yellow); Urine Specific Gravity 1.014 (1.001-1.035); WBC,Urine 1 /HPF (0-6)
[2020-01-05] MEDS ORDERED: KETOROLAC 30 MG/1 ML VIAL ONE (13:50)
[2020-01-05] MEDS ORDERED: KETOROLAC 30 MG/1 ML VIAL IV STA (13:56)
[2020-01-05] MEDS ORDERED: HYDROmorphone 2 MG/1 ML VIAL IV STA (14:10)
[2020-01-05] MEDS ORDERED: VANCOMYCIN INJ 1,500 MG in SODIUM CHLORIDE 0.9% 500 ML IV STA (14:11)
[2020-01-05] MEDS ORDERED: HYDROmorphone 2 MG TABLET PO PRN (14:15)
[2020-01-05] MEDS ORDERED: ACETAMINOPHEN 325 MG TABLET PO PRN (14:15)
[2020-01-05] MEDS ORDERED: metroNIDAZOLE INJ 500 MG in PREMIX 1 EACH IV SCH (15:00)
[2020-01-05] MEDS: SODIUM CHLORIDE 0.9% 1,000 ML IV SCH ×2 (17:18→23:04)
[2020-01-05] MEDS: ONDANSETRON 4 MG/2 ML VIAL IV PRN (18:40)
[2020-01-05] MEDS: metroNIDAZOLE INJ 500 MG in PREMIX 1 EACH IV SCH (20:35)
[2020-01-05] MEDS: DOCUSATE SODIUM 100 MG CAPSULE PO SCH (22:30)
[2020-01-05] MEDS: ENOXAPARIN 40 MG/0.4 ML SYRINGE SUBCUT SCH (22:30)
[2020-01-05] MEDS ORDERED: ONDANSETRON 4 MG/2 ML VIAL IV ONE (22:42)
[2020-01-05] MEDS: KETOROLAC 15 MG/1 ML VIAL IV SCH (23:01)
[2020-01-06] MEDS: VANCOMYCIN INJ 1,500 MG in SODIUM CHLORIDE 0.9% 500 ML IV SCH ×2 (00:25→12:32)
[2020-01-06] MEDS: metroNIDAZOLE INJ 500 MG in PREMIX 1 EACH IV SCH ×3 (04:20→21:12)
[2020-01-06] MEDS: PROMETHAZINE 25 MG/1 ML VIAL IM PRN (04:22)
[2020-01-06] MEDS ORDERED: LIDOCAINE 1%/EPI INJ 20 ML VIAL ONE (06:43)
[2020-01-06] MEDS ORDERED: BUPIVACAINE MPF 0.25% 30 ML VIAL ONE (06:43)
[2020-01-06] MEDS ORDERED: TISSUE ADHESIVE 1 EACH APPLICATOR TOP ONE (06:43)
[2020-01-06] MEDS ORDERED: GABAPENTIN 400 MG CAPSULE PO ONE (06:45)
[2020-01-06] MEDS ORDERED: DIAZEPAM 5 MG TABLET PO ONE (06:45)
[2020-01-06] MEDS ORDERED: LACTATED RINGERS 1,000 ML IV SCH (07:00)
[2020-01-06] MEDS ORDERED: FAMOTIDINE 20 MG/2 ML VIAL IV ONE (07:19)
[2020-01-06] MEDS ORDERED: LIDOCAINE 2% 5 ML VIAL ONE (09:57)
[2020-01-06] MEDS ORDERED: fentaNYL 100 MCG/2 ML VIAL ONE (09:57)
[2020-01-06] MEDS ORDERED: propofoL 200 MG/20 ML VIAL IV ONE (09:57)
[2020-01-06] MEDS ORDERED: SEVOFLURANE 1 UNIT/15 MINUTE INH ONE (09:57)
[2020-01-06] MEDS ORDERED: PHENYLEPHRINE 1 MG/10 ML SYRINGE IV ONE (09:58)
[2020-01-06] MEDS ORDERED: ONDANSETRON 4 MG/2 ML VIAL ONE ×2 (09:58→10:36)
[2020-01-06] MEDS ORDERED: NEOSTIGMINE 10 MG/10 ML VIAL ONE (09:58)
[2020-01-06] MEDS ORDERED: LACTATED RINGERS 1,000 ML IV ONE (09:58)
[2020-01-06] MEDS ORDERED: MIDAZOLAM 2 MG/2 ML VIAL ONE (09:58)
[2020-01-06] MEDS ORDERED: DEXAMETHASONE 4 MG/1 ML VIAL ONE (09:58)
[2020-01-06] MEDS ORDERED: METOPROLOL TARTRATE 5 MG/5 ML VIAL IV ONE (09:58)
[2020-01-06] MEDS ORDERED: SUCCINYLCHOLINE 200 MG/10 ML VIAL ONE (09:58)
[2020-01-06] MEDS ORDERED: ROCURONIUM 100 MG/10 ML VIAL IV ONE (09:58)
[2020-01-06] MEDS ORDERED: GLYCOPYRROLATE 0.4 MG/2 ML VIAL ONE (09:58)
[2020-01-06] MEDS: ONDANSETRON 4 MG/2 ML VIAL IV PRN ×2 (10:38→17:33)
[2020-01-06 11:58] LABS: Albumin 2.8 G/DL (3.4-5.0); Bilirubin,Direct 0.8 MG/DL (0.0-0.20); Bilirubin,Indirect 0.8 MG/DL (0.0-1.0); Bilirubin,Total 1.6 MG/DL (0.2-1.0); Total Protein 6.3 G/DL (6.4-8.3)
[2020-01-06] MEDS: PANTOPRAZOLE 40 MG TABLET PO SCH (12:31)
[2020-01-06] MEDS: DOCUSATE SODIUM 100 MG CAPSULE PO SCH ×2 (12:31→21:07)
[2020-01-06] MEDS: KETOROLAC 15 MG/1 ML VIAL IV SCH ×2 (12:31→21:08)
[2020-01-06] MEDS: LEVOFLOXACIN INJ 750 MG in PREMIX 1 EACH IV SCH (15:15)
[2020-01-06] MEDS: HYDROmorphone 2 MG/1 ML VIAL IV PRN (17:59)
[2020-01-06] MEDS: ENOXAPARIN 40 MG/0.4 ML SYRINGE SUBCUT SCH (21:07)
[2020-01-07] MEDS: HYDROmorphone 2 MG/1 ML VIAL IV PRN ×3 (00:24→21:33)
[2020-01-07] MEDS: VANCOMYCIN INJ 1,500 MG in SODIUM CHLORIDE 0.9% 500 ML IV SCH ×2 (00:25→14:33)
[2020-01-07] MEDS: metroNIDAZOLE INJ 500 MG in PREMIX 1 EACH IV SCH ×2 (05:34→13:04)
[2020-01-07] MEDS ORDERED: BACLOFEN 10 MG TABLET PO PRN (06:54)
[2020-01-07] MEDS ORDERED: LORazepam 0.5 MG TABLET PO PRN (06:54)
[2020-01-07] MEDS ORDERED: FUROSEMIDE 40 MG/4 ML VIAL IV ONE (07:34)
[2020-01-07 07:42] LABS: Basophils % 0.1 % (0.0-0.8); Hematocrit 31.7 VOL% (35.7-47.0); Hemoglobin 10.4 GM/DL (12.0-16.0); Immature Granulocytes % 0.5 %; Immature Granulocytes Absolute 0.05 #; Lymphocytes # 1.1 10*3/uL (1.4-4.0); Lymphocytes % 10.5 % (21.3-54.2); Mean Corpuscular HGB Conc 32.8 GM/DL (32-36); Mean Corpuscular Volume 91.4 FL (87-102); Mean Platelet Volume 10.9 FL (9.6-12.0); Monocytes % 6.4 % (1.7-12.7); Neutrophils % 82.5 % (38.7-73.9); Platelet Count 139 T/CUMM (130-400); Red Blood Count 3.47 MC/CUMM (3.8-5.5); Red Cell Distribution Width 13.9 % (9.3-17.3); White Blood Count 10.5 T/CUMM (4-12)
[2020-01-07] MEDS: ONDANSETRON 4 MG/2 ML VIAL IV PRN ×4 (08:50→23:05)
[2020-01-07] MEDS: KETOROLAC 15 MG/1 ML VIAL IV SCH (08:51)
[2020-01-07] MEDS: GABAPENTIN 300 MG CAPSULE PO SCH ×2 (08:52→17:23)
[2020-01-07] MEDS: DOCUSATE SODIUM 100 MG CAPSULE PO SCH (08:52)
[2020-01-07] MEDS: PANTOPRAZOLE 40 MG TABLET PO SCH (08:52)
[2020-01-07] MEDS: hydrOXYzine HCL 25 MG TABLET PO SCH (08:52)
[2020-01-07] MEDS: OXYBUTYNIN XL 10 MG TABLET PO SCH (08:52)
[2020-01-07] MEDS ORDERED: CYANOCOBALAMIN 5000 MCG PO SCH (09:00)
[2020-01-07] MEDS: CALCIUM (CARBONATE)/VITAMIN D 600 MG-400 UNIT TABLET PO SCH (09:42)
[2020-01-07] MEDS: LOSARTAN 25 MG TABLET PO SCH (11:16)
[2020-01-07] MEDS: LEVOFLOXACIN INJ 750 MG in PREMIX 1 EACH IV SCH (11:18)
[2020-01-07] MEDS: PROMETHAZINE 25 MG/1 ML VIAL IM PRN (11:26)
[2020-01-07] MEDS ORDERED: diphenhydrAMINE 50 MG/1 ML VIAL IV PRN (14:57)
[2020-01-08] MEDS: ENOXAPARIN 40 MG/0.4 ML SYRINGE SUBCUT SCH (00:19)
[2020-01-08] MEDS: ASPIRIN EC 325 MG TABLET PO SCH ×2 (00:19→20:59)
[2020-01-08] MEDS: DOCUSATE SODIUM 100 MG CAPSULE PO SCH ×3 (00:19→20:59)
[2020-01-08] MEDS: hydrOXYzine HCL 25 MG TABLET PO SCH ×3 (00:19→20:59)
[2020-01-08] MEDS: CALCIUM (CARBONATE)/VITAMIN D 600 MG-400 UNIT TABLET PO SCH ×3 (00:19→20:59)
[2020-01-08] MEDS: GABAPENTIN 300 MG CAPSULE PO SCH ×4 (00:20→20:59)
[2020-01-08] MEDS: KETOROLAC 15 MG/1 ML VIAL IV SCH ×3 (00:20→21:01)
[2020-01-08] MEDS: VANCOMYCIN INJ 1,500 MG in SODIUM CHLORIDE 0.9% 500 ML IV SCH ×2 (01:23→16:13)
[2020-01-08] MEDS: ONDANSETRON 4 MG/2 ML VIAL IV PRN ×3 (04:48→21:29)
[2020-01-08] MEDS: HYDROmorphone 2 MG/1 ML VIAL IV PRN (04:49)
[2020-01-08 05:39] LABS: Basophils % 0.3 % (0.0-0.8); Eosinophils # 0.1 10*3/uL (0.0-0.87); Eosinophils % 0.7 % (0.00-10.9); Hematocrit 31.5 VOL% (35.7-47.0); Hemoglobin 10.4 GM/DL (12.0-16.0); Immature Granulocytes % 0.6 %; Immature Granulocytes Absolute 0.06 #; Lymphocytes # 1.8 10*3/uL (1.4-4.0); Mean Platelet Volume 10.4 FL (9.6-12.0); Monocytes % 8.9 % (1.7-12.7); Neutrophils % 70.5 % (38.7-73.9); Platelet Count 174 T/CUMM (130-400); Red Blood Count 3.46 MC/CUMM (3.8-5.5); White Blood Count 9.7 T/CUMM (4-12)
[2020-01-08 06:09] LABS: Albumin 2.4 G/DL (3.4-5.0); Bilirubin,Total 0.5 MG/DL (0.2-1.0); Calcium 8.3 MG/DL (8.5-10.1)
[2020-01-08] MEDS ORDERED: INDOMETHACIN SUPP 50 MG SUPP RECTAL ONE ×2 (08:26→12:31)
[2020-01-08] MEDS ORDERED: SUCCINYLCHOLINE 200 MG/10 ML VIAL ONE (09:00)
[2020-01-08] MEDS ORDERED: LIDOCAINE 2% 5 ML VIAL ONE (09:00)
[2020-01-08] MEDS ORDERED: ROCURONIUM 100 MG/10 ML VIAL IV ONE (09:00)
[2020-01-08] MEDS ORDERED: propofoL 200 MG/20 ML VIAL IV ONE (09:00)
[2020-01-08] MEDS ORDERED: FUROSEMIDE 20 MG TABLET PO ONE (11:07)
[2020-01-08] MEDS: LACTATED RINGERS 1,000 ML IV SCH (12:20)
[2020-01-08] MEDS ORDERED: MIDAZOLAM 2 MG/2 ML VIAL ONE (12:21)
[2020-01-08] MEDS ORDERED: fentaNYL 100 MCG/2 ML VIAL ONE (12:21)
[2020-01-08] MEDS ORDERED: METOCLOPRAMIDE 10 MG/2 ML VIAL ONE (13:34)
[2020-01-08] MEDS ORDERED: ONDANSETRON 4 MG/2 ML VIAL ONE (13:34)
[2020-01-08] MEDS ORDERED: METOCLOPRAMIDE 10 MG/2 ML VIAL IV ONE (13:35)
[2020-01-08] MEDS: POTASSIUM CHLORIDE 20 MEQ TABLET PO PRN ×3 (14:27→18:11)
[2020-01-08] MEDS: PANTOPRAZOLE 40 MG TABLET PO SCH (14:27)
[2020-01-08] MEDS: LOSARTAN 25 MG TABLET PO SCH (14:27)
[2020-01-08] MEDS: OXYBUTYNIN XL 10 MG TABLET PO SCH (14:27)
[2020-01-08] MEDS: LEVOFLOXACIN INJ 750 MG in PREMIX 1 EACH IV SCH (14:28)
[2020-01-09] MEDS: VANCOMYCIN INJ 1,500 MG in SODIUM CHLORIDE 0.9% 500 ML IV SCH ×2 (00:35→13:46)
[2020-01-09 05:39] LABS: Basophils % 0.3 % (0.0-0.8); Eosinophils % 0.5 % (0.00-10.9); Hematocrit 34.6 VOL% (35.7-47.0); Hemoglobin 11.5 GM/DL (12.0-16.0); Immature Granulocytes % 0.8 %; Immature Granulocytes Absolute 0.06 #; Lymphocytes # 1.7 10*3/uL (1.4-4.0); Lymphocytes % 23.4 % (21.3-54.2); Mean Corpuscular HGB Conc 33.2 GM/DL (32-36); Mean Corpuscular Volume 88.7 FL (87-102); Mean Platelet Volume 10.6 FL (9.6-12.0); Monocytes % 9.9 % (1.7-12.7); Neutrophils % 65.1 % (38.7-73.9); Platelet Count 178 T/CUMM (130-400); Red Cell Distribution Width 13.7 % (9.3-17.3); White Blood Count 7.3 T/CUMM (4-12)
[2020-01-09 06:17] LABS: Albumin 2.5 G/DL (3.4-5.0); Bilirubin,Total 0.9 MG/DL (0.2-1.0); Calcium 8.4 MG/DL (8.5-10.1)
[2020-01-09] MEDS: hydrOXYzine HCL 25 MG TABLET PO SCH ×2 (09:35→20:53)
[2020-01-09] MEDS: DOCUSATE SODIUM 100 MG CAPSULE PO SCH ×2 (09:35→20:53)
[2020-01-09] MEDS: PANTOPRAZOLE 40 MG TABLET PO SCH (09:35)
[2020-01-09] MEDS: CALCIUM (CARBONATE)/VITAMIN D 600 MG-400 UNIT TABLET PO SCH ×2 (09:35→20:56)
[2020-01-09] MEDS: LOSARTAN 25 MG TABLET PO SCH (09:35)
[2020-01-09] MEDS: GABAPENTIN 300 MG CAPSULE PO SCH ×3 (09:35→20:53)
[2020-01-09] MEDS: OXYBUTYNIN XL 10 MG TABLET PO SCH (09:35)
[2020-01-09] MEDS: KETOROLAC 15 MG/1 ML VIAL IV SCH ×2 (09:36→20:58)
[2020-01-09] MEDS: LACTATED RINGERS 1,000 ML IV SCH (10:24)
[2020-01-09] MEDS: LEVOFLOXACIN INJ 750 MG in PREMIX 1 EACH IV SCH (11:48)
[2020-01-09] MEDS: SODIUM CHLORIDE 0.9% 1,000 ML IV SCH ×2 (12:56→12:57)
[2020-01-09] MEDS: ENOXAPARIN 40 MG/0.4 ML SYRINGE SUBCUT SCH (20:52)
[2020-01-09] MEDS: ASPIRIN EC 325 MG TABLET PO SCH (20:53)
[2020-01-09] MEDS: ONDANSETRON 4 MG/2 ML VIAL IV PRN (21:00)
[2020-01-10] MEDS: VANCOMYCIN INJ 1,500 MG in SODIUM CHLORIDE 0.9% 500 ML IV SCH ×2 (00:29→14:10)
[2020-01-10 06:30] LABS: Calcium 8.8 MG/DL (8.5-10.1); Osmolality,Calculated 283.8 MOS/KG (273-304)
[2020-01-10 07:07] LABS: Basophils % 0.4 % (0.0-0.8); Eosinophils # 0.4 10*3/uL (0.0-0.87); Hematocrit 34.8 VOL% (35.7-47.0); Hemoglobin 11.3 GM/DL (12.0-16.0); Immature Granulocytes % 1.1 %; Lymphocytes # 2.2 10*3/uL (1.4-4.0); Lymphocytes % 24.6 % (21.3-54.2); Mean Corpuscular HGB Conc 32.5 GM/DL (32-36); Mean Corpuscular Volume 91.3 FL (87-102); Mean Platelet Volume 10.2 FL (9.6-12.0); Monocytes % 6.8 % (1.7-12.7); Neutrophils % 63.1 % (38.7-73.9); Platelet Count 224 T/CUMM (130-400); Red Blood Count 3.81 MC/CUMM (3.8-5.5); Red Cell Distribution Width 14.1 % (9.3-17.3)
[2020-01-10] MEDS: LACTATED RINGERS 1,000 ML IV SCH (07:46)
[2020-01-10] MEDS: OXYBUTYNIN XL 10 MG TABLET PO SCH (09:24)
[2020-01-10] MEDS: DOCUSATE SODIUM 100 MG CAPSULE PO SCH (09:24)
[2020-01-10] MEDS: GABAPENTIN 300 MG CAPSULE PO SCH (09:25)
[2020-01-10] MEDS: CALCIUM (CARBONATE)/VITAMIN D 600 MG-400 UNIT TABLET PO SCH (09:25)
[2020-01-10] MEDS: POTASSIUM CHLORIDE 20 MEQ TABLET PO PRN ×2 (09:25→13:00)
[2020-01-10] MEDS: hydrOXYzine HCL 25 MG TABLET PO SCH (09:25)
[2020-01-10] MEDS: LOSARTAN 25 MG TABLET PO SCH (09:26)
[2020-01-10] MEDS: PANTOPRAZOLE 40 MG TABLET PO SCH (09:26)
[2020-01-10] MEDS: KETOROLAC 15 MG/1 ML VIAL IV SCH (09:38)
[2020-01-10 11:26] VITALS: BP 133/73
[2020-01-10] MEDS: LEVOFLOXACIN INJ 750 MG in PREMIX 1 EACH IV SCH (12:16)
== END 2020-01-10 14:00 | disposition home or self-care (01) | DRG 853 ==
LOC: N.ED 11:24 → N.EDINP 14:15 → N.TELES 22:14
PROVIDERS: ADMIT Family Medicine; ATTEND Family Medicine
PROC: LAPCHOL (2020-01-06 07:50)
PROC: ERCPWSP (ICD-10-PCS; 2020-01-08 10:50)

== ENCOUNTER 2020-02-19 15:51 | Observation (INO) ==
[2020-02-19 16:14] LABS: Basophils % 0.5 % (0.0-0.8); Eosinophils # 0.2 10*3/uL (0.0-0.87); Eosinophils % 2.5 % (0.00-10.9); Hematocrit 40.4 VOL% (35.7-47.0); Hemoglobin 13.4 GM/DL (12.0-16.0); Immature Granulocytes % 0.3 %; Immature Granulocytes Absolute 0.02 #; Lymphocytes # 2.3 10*3/uL (1.4-4.0); Lymphocytes % 30.4 % (21.3-54.2); Mean Corpuscular HGB Conc 33.2 GM/DL (32-36); Mean Corpuscular Volume 90.8 FL (87-102); Mean Platelet Volume 9.8 FL (9.6-12.0); Monocytes % 5.1 % (1.7-12.7); Neutrophils % 61.2 % (38.7-73.9); Platelet Count 243 T/CUMM (130-400); Red Blood Count 4.45 MC/CUMM (3.8-5.5); Red Cell Distribution Width 13.8 % (9.3-17.3); White Blood Count 7.7 T/CUMM (4-12)
[2020-02-19] MEDS ORDERED: ASPIRIN 325 MG TABLET PO STA (16:27)
[2020-02-19 16:42] LABS: Albumin 3.9 G/DL (3.4-5.0); Bilirubin,Total 0.5 MG/DL (0.2-1.0); Calcium 9.3 MG/DL (8.5-10.1); Osmolality,Calculated 282.3 MOS/KG (273-304); Total Protein 7.5 G/DL (6.4-8.3)
[2020-02-19] MEDS ORDERED: ACETAMINOPHEN 325 MG TABLET PO PRN (17:08)
[2020-02-19] MEDS ORDERED: ONDANSETRON 4 MG/2 ML VIAL IV PRN (17:08)
[2020-02-19] MEDS ORDERED: LEVOFLOXACIN INJ 500 MG in PREMIX 1 EACH IV STA (17:10)
[2020-02-19] MEDS: DOCUSATE SODIUM 100 MG CAPSULE PO SCH (21:35)
[2020-02-20 08:43] VITALS: BP 132/81
[2020-02-20] MEDS ORDERED: PANTOPRAZOLE 40 MG TABLET PO SCH (09:00)
[2020-02-20] MEDS ORDERED: LOSARTAN 50 MG TABLET PO SCH (09:00)
[2020-02-20] MEDS: DOCUSATE SODIUM 100 MG CAPSULE PO SCH ×2 (09:24→09:25)
[2020-02-20] MEDS ORDERED: ASPIRIN EC 325 MG TABLET PO SCH (21:00)
== END 2020-02-20 11:19 | disposition home or self-care (01) ==
LOC: N.ED 15:51 → N.EDINP 15:51 → N.TELES 20:24
PROVIDERS: ADMIT Family Medicine; ATTEND Family Medicine